=== PATIENT | male | born 1950 | race Caucasian/White ===

== ENCOUNTER 2020-10-08 01:19 | Emergency (ER) | payer OTHER ==
[~2020-10-08] VITALS: Ht 172.7 cm; Wt 78.0 kg
[2020-10-08] MEDS ORDERED: HYDROCHLOROT12.5 M1 PO (01:51)
[2020-10-08] MEDS ORDERED: ALLOPURINOL100 MG PO (01:52)
[2020-10-08] MEDS ORDERED: NORVASC5 M1 PO (01:52)
[2020-10-08] MEDS ORDERED: METFORMIN HCL1000 MG PO (01:52)
[2020-10-08] MEDS ORDERED: VITAMIN B 12250 MCG PO (01:53)
[2020-10-08] MEDS ORDERED: TAMSULOSIN0.4 MG PO (01:53)
[2020-10-08] MEDS ORDERED: PROZAC10 MG PO (01:54)
[2020-10-08] MEDS ORDERED: KEFLEX500 M1 PO (02:27)
[2020-10-08] MEDS ORDERED: MEDDOSEPAK PO (02:27)
[2020-10-08] MEDS ORDERED: FLONASE AL50 MCG/ACT (02:27)
[2020-10-08 02:30] VITALS: BP 162/72
== END 2020-10-08 02:30 | disposition home or self-care (01) | DRG 153 ==
LOC: ED 01:19
DX: J32.9 Chronic sinusitis, unspecified (principal); E11.9 Type 2 diabetes mellitus without complications; I10 Essential (primary) hypertension; Z79.84 Long term (current) use of oral hypoglycemic drugs

== ENCOUNTER 2020-10-11 04:35 | Emergency (ER) | payer SELFPAY ==
[~2020-10-11] VITALS: Ht 172.7 cm; Wt 77.0 kg
[~2020-10-11 04:35] MED LIST: ALLOPURINOL100 MG PO; FLONASE AL50 MCG/ACT; HYDROCHLOROT12.5 M1 PO; KEFLEX500 M1 PO; MEDDOSEPAK PO; METFORMIN HCL1000 MG PO; NORVASC5 M1 PO; PROZAC10 MG PO; TAMSULOSIN0.4 MG PO; VITAMIN B 12250 MCG PO
[2020-10-11 06:28] VITALS: BP 153/85
[2020-10-11] MEDS ORDERED: AUGMENTIN500TAB PO (06:29)
== END 2020-10-11 06:35 | disposition home or self-care (01) | DRG 153 ==
LOC: ED 04:35
DX: J32.9 Chronic sinusitis, unspecified (principal); E11.9 Type 2 diabetes mellitus without complications; I10 Essential (primary) hypertension; Z79.84 Long term (current) use of oral hypoglycemic drugs